=== PATIENT | female | born 1940 | race African-American/Black ===

== ENCOUNTER 2016-08-09 06:13 | Day surgery (SDC) | payer MEDICARE, BC ==
[~2016-08-09] VITALS: Ht 167.6 cm; Wt 81.6 kg
[~2016-08-09 06:13] MED LIST: ACET1TAB14 PO; ALBU18HF2 IH; ALBU90AE IH; ALLO100T PO; ASPI-1159 PO; CYCL5TAB PO; DILT360C27 PO; DIPH25CA83 PO; FLUT1DIS3 INH; FURO20TA4 PO; P50 PO; PARO20TA53 PO; PRAV20TA57 PO; SPIR25TA PO; TIOT18CA3 INH; ZOLP12.52 PO
[2016-08-09] MEDS ORDERED: FENTANYL CITRATE/PF 50MCG/ML 2ML VIAL ONE (08:32)
[2016-08-09] MEDS ORDERED: IODIXANOL 320MG/ML 100 ML BOTTLE IV ONE (08:32)
[2016-08-09] MEDS ORDERED: MIDAZOLAM HCL 2 MG/2 ML VIAL ONE ×2 (08:32→09:05)
[2016-08-09] MEDS ORDERED: LIDOCAINE HCL 1% 20ML VIAL (Pyxis) INJ ONE (08:33)
[2016-08-09] MEDS ORDERED: HYDROMORPHONE HCL/PF 2MG/ML (OR) ONE (08:47)
[2016-08-09] MEDS ORDERED: IOVERSOL 240MG/ML 100ML BOTTLE IV ONE (09:04)
[2016-08-09] MEDS ORDERED: HYDROMORPHONE HCL/PF 2MG/ML CPJ IV PRN (09:30)
[2016-08-09 12:25] VITALS: BP 105/58
== END 2016-08-09 16:00 | disposition home or self-care (01) ==
LOC: CCL 06:13
PROVIDERS: ATTEND Specialist
DX: I73.9 Peripheral vascular disease, unspecified (principal); J44.9 Chronic obstructive pulmonary disease, unspecified; E78.5 Hyperlipidemia, unspecified; Z85.3 Personal history of malignant neoplasm of breast; Z87.891 Personal history of nicotine dependence; Z88.0 Allergy status to penicillin; Z88.8 Allergy status to other drugs, medicaments and biological substances
CPT/HCPCS: 36247; 75710; 99152; 99153; C1760; C1769; C1893; J1170; J1644; J2250; J3010; J3490; Q9967